=== PATIENT | female | born 1950 | race Caucasian/White ===

== ENCOUNTER 2016-12-22 09:44 | Day surgery (SDC) | payer MEDICARE ==
[~2016-12-22] VITALS: Ht 165.1 cm; Wt 112.7 kg
[2016-12-22] VITALS (8 sets, daily range): BP systolic 110–152; BP diastolic 58–78; PULSE 68–90; RESP 3–18; O2SAT 97–100
--- NOTE | 2016-12-22 06:38 | PCM.HPANE ---
Patient Data Surgeon Admitting Provider: Attending Provider:Ramila Calderón MD Primary Care Physician:Rosales Irwin DO Other Provider:GuillerminaocLloyd Anesthesia Reason for Visit Left Ureteral Stone Ht/WT & BMI Height (Feet): 5 Height (Inches): 5 Weight (Kilograms): 112.7 Body Mass Index 41.00 Allergies Coded Allergies: celecoxib (Verified Allergy, Intermediate, rash, 12/21/16) influenza virus vacc trivalent, split (Verified Allergy, Intermediate, rash, 12/21/16) zoster vaccine live (Verified Allergy, Intermediate, patchy swelly skin, ) ciprofloxacin (Verified Allergy, Unknown, itchy, 12/21/16) tramadol (Verified Allergy, Unknown, rash, 12/21/16) acetaminophen (Verified Adverse Reaction, Intermediate, Rash,Itching,, ) hydrocodone (Verified Adverse Reaction, Intermediate, Rash,Itching,, ) Uncoded Allergies: BLAXIN (Allergy, Unknown, rash, 12/21/16) Past Anesthesia History Anesthesia History: Denies:: Abnormal Airway, Anesthesia Reactions, Difficult Intubation, Fam Anesthesia Reaction, Fam Malignant Hypertherm, Malignant Hyperthermia Diabetes History Hx Diabetes?: No Medications Hypertension Medication: Yes Reported Medications Atorvastatin (Lipitor)20 Mg [id number] Mg PO DAILY Ref 0 12/21/16 Hydrocodone-Acetaminophen 5-325 mg 1 Each Tablet1 Tablet PO Q4H PRN For Pain Ref 0 12/21/16 Sulfamethoxazole/Trimeth 400-80 mg (Bactrim)1 Each Tablet1 Tablet PO BID Ref 0 12/21/16 Hydrochlorothiazide 25 Mg [id number] Mg PO DAILY 30 Days Ref 0 12/21/16 Furosemide 20 Mg Tab40 Mg PO DAILY 30 Days Ref 0 12/21/16 Levothyroxine 75 Mcg Kmzxzl80 Mcg PO DAILY Ref 0 12/21/16 Pyridoxine HCl (Pyridoxine)500 Mg [id number] Mg PO DAILY 30 Days Ref 0 12/21/16 Pyridoxine (Vitamin B-6)50 Mg Bfgyyi95 Mg PO 12/21/16 Magnesium Oxide (Magnesium)400 Mg Vkcgyr184 Mg PO DAILY 12/21/16 Lorazepam 1 Mg Tablet1 Mg PO TID PRN For Anxiety Ref 0 12/21/16 Ranitidine 150 Mg [id number] Mg PO DAILY Ref 0 5/24/17 History History of ENT Problems?: No HEENT History: Denies:: Abnormal Airway Cataracts Difficult Intubation Dysphagia Glaucoma Hearing Problem Sinus Problem TMJ Denture Type: None Teeth Condition: Within Normal Limits Hx of Heart Problems?: Yes Cardiovascular History: Positive for:: Coronary Artery Disease (elevated chloresterol) Edema Hypertension Hx of Respiratory Problem?: No Respiratory History: Denies:: Use of C-PAP Machine (sleep apnea) Hx Neurologic Problems?: No Hx of GI Problems?: No Hx of Problems?: Yes Genitourinary History: Positive for:: Kidney Stones Urinary Tract Infection Hx Musculoskeletal Problems?: No Hx Surgeries?: Yes Hx Any Other Health Problems?: No Other History: Denies:: Cancer Hx Diabetes: No Hx Alcohol Use: NoHx Substance Use: No Stop/Bang Treated for Sleep Apnea?: Yes Do You Have a CPAP Machine?: Yes MITZI Risk Assessment: High Risk, =/>3 Yes MITZI Category 4 OutPt Procedure: Yes Risk Assessment Category Category 1A: Patient has history of documented sleep apnea, and HAS NOT received any narcotic, sedative or anesthesia administration during this stay. Category 1B: Patient has history of documented sleep apnea, and HAS received any narcotic , sedative or anesthesia administration during this stay Category 2: Patient has SUSPECTED Obstructive Sleep Apnea, and HAS received any narcotic , sedative or anesthesia administration during this stay. Category 3: Patient has SUSPECTED Obstructive Sleep Apnea and HAS NOT received narcotic, sedative or anesthesia administration during this stay. Category 4: Outpatient in Procedural Areas with known sleep apnea or who screen positive for High Risk via the STOP/BANG questionnaire. Exam Exam General Appearance: Alert, Oriented X3, Cooperative, No Acute Distress HEENT/AIRWAY: MP 2 Lungs: Clear to Auscultation, Normal Air Movement Heart: Exam Unremarkable, Regular Rate/Rhythm, No Murmurs/Rubs/Gallops Plan Impression Patient chart reviewed, patient interviewed and anesthestic plan with risks, benefits, and alternatives discussed, and informed consent obtained. NPO per Anesth. Guidelines: Yes ASA Physical Status: ASA2 Mod Systemic Disease Anesthetic Plan: GA Bene/Risks/Altern/Consents: Yes HP Complete Prior to Induction: Yes Sahil Adams MD December 22, 2016 06:38
[~2016-12-22 09:44] MED LIST: ATOR20TA PO; CeFAZolin Inj 2 GM in IV Premix 1 EACH IV ONE; FUR20 PO; HYDR-4003 PO; HYDR25TA4 PO; LEVO75TA4 PO; LORA1TAB PO; MAGN400T39 PO; PYR50 PO; RANI150C4 PO; SULF-239 PO; [UNRECOGNIZED DRUG - CODE] PO
[2016-12-22] MEDS ORDERED: fentaNYL-PF 50 mCg/mL 2 mL Inj ONE (09:45)
[2016-12-22] MEDS ORDERED: Dexamethasone 4 mg/mL Inj ONE (09:45)
[2016-12-22] MEDS ORDERED: Propofol 10,000 mCg/mL 20 mL Inj ONE (09:45)
[2016-12-22] MEDS ORDERED: Ondansetron 2 mg/mL 2 mL Inj ONE (09:45)
[2016-12-22] MEDS ORDERED: Lactated Ringer's 1,000 ML IV ONE ×2 (11:06→13:58)
[2016-12-22] MEDS ORDERED: CeFAZolin Inj 2 gm / 50mL D5W IV ONE (11:29)
[2016-12-22] MEDS ORDERED: Lactated Ringer's 500 ML IV PRN (12:38)
[2016-12-22] MEDS ORDERED: Lactated Ringer's 1,000 ML IV SCH (12:38)
[2016-12-22] MEDS ORDERED: EPHEDrine Sulfate 50 mg/mL Inj IVPUSH PRN (12:40)
[2016-12-22] MEDS ORDERED: Labetalol 5 mg/mL 4 mL Inj IV PRN (12:40)
[2016-12-22] MEDS ORDERED: fentaNYL-PF 50 mCg/mL 2 mL Inj IVPUSH PRN (12:40)
[2016-12-22] MEDS ORDERED: Ondansetron 2 mg/mL 2 mL Inj IVPUSH PRN (12:40)
[2016-12-22] MEDS ORDERED: MetoCLOpramide 5 mg/mL 2 mL Inj IVPUSH PRN (12:40)
[2016-12-22] MEDS ORDERED: HYDROmorphone 1 mg/mL Inj IVPUSH PRN (12:40)
[2016-12-22] MEDS ORDERED: Atropine 0.4 mg/mL Inj IVPUSH PRN (12:40)
[2016-12-22] MEDS ORDERED: Dexamethasone 4 mg/mL Inj IVPUSH PRN (12:40)
[2016-12-22] MEDS ORDERED: Phenylephrine 10,000 mCg/mL Inj IVPUSH PRN (12:40)
[2016-12-22] MEDS ORDERED: oxyCODONE-Acetamin 5-325 mg Tablet PO PRN (13:20)
--- NOTE | 2016-12-22 14:03 | PCM.ANEP1 ---
Post Anesthesia PACU Phase 1 Assessment Vital Signs Vital Signs Date Time Temp Pulse Resp B/P Pulse Ox O2 Delivery O2 Flow Rate FiO2 12/22/16 13:59 36.5 72 18 139/67 99 Room Air 12/22/16 13:40 74 16 128/78 98 Room Air 12/22/16 13:25 75 14 110/58 99 Room Air 12/22/16 13:20 70 3 123/68 100 Simple Mask 10 12/22/16 13:15 73 16 124/65 100 Simple Mask 10 12/22/16 13:10 36.2 68 17 119/70 100 Simple Mask 10 12/22/16 10:46 36.8 76 14 144/70 97 Room Air Anesthetic Administered: GA Level of Alertness: Awake, talking CARVER's with Equal Strength: Yes Pain: No Nausea or Vomiting: No CV Function & Hydration Stable: No Airway Device: Oxygen Delivery: Simple Mask Lungs: Clear to Auscultation, Normal Air Movement PACU Phase 2 Assessment Complications: No Follow up Care: No Patient Instructions Provided: N/A Sahil Adams MD December 22, 2016 14:03
--- NOTE | 2016-12-22 14:08 | OP ---
[address] [address] OPERATIVE REPORT PATIENT: ALDEN MATTHEWS : 1950 MR#: [id number] ADMIT: 12/22/2016 JOB ID: [id number] DATE OF SURGERY: 12/22/2016 PREOPERATIVE DIAGNOSIS(ES): Left ureteral calculus. POSTOPERATIVE DIAGNOSIS(ES): Left ureteral calculus. PROCEDURE: 1. Cystoscopy. 2. Ureteroscopy. 3. Laser lithotripsy. 4. Stone basketing and insertion of stent. SURGEON: Ramila Calderón MD ANESTHESIA: General anesthetic, Dr. Adams. DESCRIPTION OF PROCEDURE: Under general anesthetic, patient was placed in lithotomy position. Genitalia prepped and draped in a sterile manner. A 22-Cuban cystoscope was introduced into the urethra. Ureteral orifices were normal in position and appearance. A 0.035 Glidewire was advanced to the level of the left renal pelvis. Over the Glidewire, a 15-Cuban balloon dilation catheter was used to dilate the distal ureter. A semirigid ureteroscope was then passed alongside the wire to the level of the mid ureter, and the stone could not be visualized. A 14-Cuban access sheath was then passed over the wire to a point just below the ureteropelvic junction. A 7-Cuban flexible ureteroscope was then passed through the access sheath. The stone was visualized just below the ureteropelvic junction. Using a 272 micron fiber and holmium laser, the stone broke into multiple segments with minimal laser energy. A nitinol NGage basket was then used to retract fragments. Several submillimeter fragments remained in the kidney and should pass spontaneously. The access sheath was withdrawn and a 6-Cuban 24 cm double-J stent was passed over the wire. When the stent was confirmed to be in good position fluoroscopically, the wire was removed. DISPOSITION: Patient tolerated the procedure well and left the operating room in good condition.
[2016-12-30 09:12] LABS: Stone Color Tan (.)
== END 2016-12-22 23:59 | disposition home or self-care (01) ==
LOC: SAS 09:44
PROVIDERS: ATTEND Urology
DX: N20.1 Calculus of ureter (principal); R31.0 Gross hematuria; I10 Essential (primary) hypertension; I25.10 Atherosclerotic heart disease of native coronary artery without angina pectoris; M54.5 Low back pain; E66.01 Morbid (severe) obesity due to excess calories; Z90.710 Acquired absence of both cervix and uterus; Z79.82 Long term (current) use of aspirin; Z96.641 Presence of right artificial hip joint; Z68.41 Body mass index [BMI] 40.0-44.9, adult
CPT/HCPCS: 52356; 76000; 82360; C2617; J0690; J1100; J2250; J2405; J3010; J7120